=== PATIENT | male | born 1950 | race Caucasian/White ===

== ENCOUNTER → 2021-07-13 | Outpatient (CLI) | payer MEDICARE, OTHER ==
[~2021-07-13] MED LIST: ALBUTEROL1.25 MG/3 INH; ASPIR 8181 MG PO; ASPIRIN EC81 MG PO; AUGMENTIN 500-1 EACH PO; AUGMENTIN 875-1 EACH PO; BUMEX 1MG TABLET1 MG PO; CATAPRES 0.1MG0.1 MG PO; CEFDINIR300 MG PO; CEFUROXIME500 MG PO; CHRONULAC20 GM/30 M PO; CLARITIN10 MG PO; CLONIDINE1 EAC1 TD; CLOPIDOGREL75 MG PO; COQ-10100 MG PO; CORDARONE 200M200 MG PO; COZAAR 50MG TAB50 MG PO; COZAAR100 MG PO; DILTIAZEM 24HR240 M1 PO; DOXYCYCLINE HY100 MG PO; ELIQUIS 2.5 MG2.5 MG PO; FLONASE 0.05% N16 GM; HUMALOG 10100 UNITS/ SQ; HUMALOG100 UNIT/3 SC; HYDRALAZINE HC100 MG PO; ISOSORBIDE DINI30 MG PO; ISOSORBIDE MONO30 MG PO; KEFLEX CAP 250250 MG PO; KEFLEX250 MG PO; LANTUS100 UNIT/1 SQ; LISINOPRIL20 MG PO; LOPRESSOR 50 MG50 MG PO; LORATADINE10 MG PO; MONTELUKAST SOD10 MG PO; MUCINEX600 MG PO; NIFEDIPINE ER60 MG PO; NITROSTAT0.4 MG SL; OMNICEF 300 MG300 MG PO; PEPCID20 MG PO; PLAVIX 75 MG TA75 MG PO; PRADAXA150 MG PO; PRADAXA75 MG PO; PRAVACHOL20 MG PO; PRAVASTATIN SOD40 MG PO; PREDNISONE20 MG PO; PRESERVISION A1 EACH PO; PROCARDIA XL 3030 MG PO; PROTONIX40 MG PO; RANITIDINE HCL75 MG PO; RENVELA800 MG PO; SERTRALINE HCL25 MG PO; SYMBICORT 16010.2 GM INH; ULTRAM50 MG PO; VENTOLIN HFA 66.7 GM INH; VENTOLIN/PROVE0.5 ML INH; VITAMIN D325 MCG PO; ZOCOR10 MG PO; ZOLOFT25 MG PO
== END ==
LOC: EXRD 13:50
DX: I65.23 Occlusion and stenosis of bilateral carotid arteries (principal)
CPT/HCPCS: 93880

== ENCOUNTER 2021-07-31 07:10 | Observation (INO) | payer MEDICARE, OTHER ==
[~2021-07-31] VITALS: Ht 185.4 cm; Wt 128.5 kg
[~2021-07-31 07:10] MED LIST changes: -CLONIDINE1 EAC1 TD; -LORATADINE10 MG PO; -MONTELUKAST SOD10 MG PO; -NITROSTAT0.4 MG SL; -PRESERVISION A1 EACH PO; -VITAMIN D325 MCG PO
[2021-07-31 07:51] LABS: HEMOGLOBIN 11.4 gm/dl (14.0-17.5); RED BLOOD COUNT 3.82 M/UL (4.20-5.50); WHITE BLOOD COUNT 11.9 K/UL (4.5-11.0)
[2021-07-31] MEDS ORDERED: LANTUS100 UNIT/1 SQ (11:30)
[2021-07-31] MEDS ORDERED: LORATADINE10 MG PO (11:33)
[2021-07-31] MEDS ORDERED: MONTELUKAST SOD10 MG PO (11:35)
[2021-07-31] MEDS ORDERED: VITAMIN D325 MCG PO (11:36)
[2021-07-31] MEDS ORDERED: CLONIDINE1 EAC1 TD (11:39)
[2021-07-31] MEDS ORDERED: HYDRALAZINE HC100 MG PO (11:40)
[2021-07-31] MEDS ORDERED: NITROSTAT0.4 MG SL (12:33)
[2021-07-31] MEDS ORDERED: NIFEDIPINE ER60 MG PO (12:34)
[2021-07-31] MEDS ORDERED: PRAVASTATIN SOD40 MG PO (12:34)
[2021-07-31] MEDS ORDERED: PRESERVISION A1 EACH PO (12:59)
[2021-08-01 07:53] LABS: WHITE BLOOD COUNT 9.9 K/UL (4.5-11.0)
[2021-08-01 08:44] LABS: HEMOGLOBIN 9.4 gm/dl (14.0-17.5); RED BLOOD COUNT 3.14 M/UL (4.20-5.50)
== END 2021-08-01 14:19 | disposition home or self-care (01) ==
LOC: ER1 07:10 → CDU 10:23 → M/S 19:15
PROVIDERS: Emergency Medicine; Physician Assistant Medical; ADMIT Internal Medicine
DX: T82.868A Thrombosis due to vascular prosthetic devices, implants and grafts, initial encounter (principal); E78.5 Hyperlipidemia, unspecified; I12.0 Hypertensive chronic kidney disease with stage 5 chronic kidney disease or end stage renal disease; N18.6 End stage renal disease; E11.22 Type 2 diabetes mellitus with diabetic chronic kidney disease; Z99.2 Dependence on renal dialysis; I25.10 Atherosclerotic heart disease of native coronary artery without angina pectoris; Z95.1 Presence of aortocoronary bypass graft; D63.1 Anemia in chronic kidney disease; Z88.1 Allergy status to other antibiotic agents; Z88.2 Allergy status to sulfonamides; Z87.891 Personal history of nicotine dependence; E87.5 Hyperkalemia; I48.20 Chronic atrial fibrillation, unspecified; Z20.822 Contact with and (suspected) exposure to COVID-19; J98.11 Atelectasis; G47.33 Obstructive sleep apnea (adult) (pediatric)
CPT/HCPCS: 36415; 71045; 71250; 77001; 80048; 80053; 82550; 82553; 82962; 83735; 83874; 83880; 84484; 85025; 85027; 90935; 93005; 94664; 94760; C1750; C1752; C1769; G0378; J0690; J1642; J2001; J2405; J2704; J2765; J3010; J7040; J7120; U0002

== ENCOUNTER 2021-09-22 11:35 | Inpatient (IN) | payer MEDICARE, OTHER ==
[~2021-09-22] VITALS: Ht 185.4 cm; Wt 116.1 kg
[~2021-09-22 11:35] MED LIST changes: +CLONIDINE1 EAC1 TD; +HUMALOG100 UNIT/1 SQ; -HUMALOG100 UNIT/3 SC; +LORATADINE10 MG PO; +MONTELUKAST SOD10 MG PO; +NITROSTAT0.4 MG SL; +PRESERVISION A1 EACH PO; +VITAMIN D325 MCG PO
[2021-09-22 12:02] LABS: HEMOGLOBIN 11.4 gm/dl (14.0-17.5); RED BLOOD COUNT 3.74 M/UL (4.20-5.50); WHITE BLOOD COUNT 8.6 K/UL (4.5-11.0)
[2021-09-22] MEDS ORDERED: PANTOPRAZOLE SO20 MG PO (16:41)
[2021-09-22] MEDS ORDERED: CEPHALEXIN250 MG PO (16:44)
[2021-09-22] MEDS ORDERED: AUGMENTIN 875-1 EACH PO (16:45)
[2021-09-24 07:36] LABS: HEMOGLOBIN 10.5 gm/dl (14.0-17.5); RED BLOOD COUNT 3.52 M/UL (4.20-5.50); WHITE BLOOD COUNT 7.8 K/UL (4.5-11.0)
[2021-09-25 07:15] LABS: HEMOGLOBIN 10.6 gm/dl (14.0-17.5); RED BLOOD COUNT 3.58 M/UL (4.20-5.50); WHITE BLOOD COUNT 6.8 K/UL (4.5-11.0)
[2021-09-28 07:18] LABS: HEMOGLOBIN 10.6 gm/dl (14.0-17.5); RED BLOOD COUNT 3.62 M/UL (4.20-5.50); WHITE BLOOD COUNT 18.1 K/UL (4.5-11.0)
--- NOTE | 2021-09-29 10:25 | NUR ---
pt went to dialysis at 0900 via transport
[2021-09-30 08:41] LABS: HEMOGLOBIN 10.4 gm/dl (14.0-17.5); RED BLOOD COUNT 3.54 M/UL (4.20-5.50); WHITE BLOOD COUNT 14.6 K/UL (4.5-11.0)
[2021-10-01 06:51] LABS: HEMOGLOBIN 10.9 gm/dl (14.0-17.5); RED BLOOD COUNT 3.65 M/UL (4.20-5.50); WHITE BLOOD COUNT 13.4 K/UL (4.5-11.0)
[2021-10-02 08:44] LABS: RED BLOOD COUNT 3.36 M/UL (4.20-5.50); WHITE BLOOD COUNT 12.6 K/UL (4.5-11.0)
[2021-10-03 06:00] LABS: HEMOGLOBIN 9.9 gm/dl (14.0-17.5); RED BLOOD COUNT 3.28 M/UL (4.20-5.50)
[2021-10-04 09:27] LABS: HEMOGLOBIN 10.2 gm/dl (14.0-17.5); RED BLOOD COUNT 3.44 M/UL (4.20-5.50)
[2021-10-04 09:28] LABS: WHITE BLOOD COUNT 20.6 K/UL (4.5-11.0)
[2021-10-05 03:51] LABS: HEMOGLOBIN 9.8 gm/dl (14.0-17.5); RED BLOOD COUNT 3.38 M/UL (4.20-5.50); WHITE BLOOD COUNT 19.6 K/UL (4.5-11.0)
[2021-10-06 02:36] LABS: HEMOGLOBIN 10.1 gm/dl (14.0-17.5); RED BLOOD COUNT 3.41 M/UL (4.20-5.50); WHITE BLOOD COUNT 16.8 K/UL (4.5-11.0)
[2021-10-07 03:28] LABS: HEMOGLOBIN 9.4 gm/dl (14.0-17.5); RED BLOOD COUNT 3.21 M/UL (4.20-5.50); WHITE BLOOD COUNT 15.9 K/UL (4.5-11.0)
[2021-10-09 03:11] LABS: HEMOGLOBIN 9.5 gm/dl (14.0-17.5); RED BLOOD COUNT 3.24 M/UL (4.20-5.50); WHITE BLOOD COUNT 15.2 K/UL (4.5-11.0)
[2021-10-10 08:13] LABS: HBSAG SCREEN Negative (Negative); HEP A AB, IGM Negative (Negative); HEP B CORE AB, IGM Negative (Negative); HEP C VIRUS AB <0.1 (0.0-0.9)
--- NOTE | 2021-10-12 10:09 | NUR ---
PATIENT LEFT FLOOR AT 9AM THIS MORINING PER RESPIRATORY AND PER TRANSPORT TO DIALYSIS. PATIENT IS AWAKE AND ALERT WITH NO PRESENT COMPLAINTS OF PAIN OR DISCOMFORT
--- NOTE | 2021-10-12 14:10 | NUR ---
1200 TODAY CALLED TO DIALYSIS TO CHECK PATIENT SUGAR. HE STATED IT "FEELS" LOW. BLOOD SUGAR AT 123 PRESENTLY. NADN. WILL CONTINUE TO MONITOR
--- NOTE | 2021-10-12 14:50 | NUR ---
PATIENT RETURNS TO FLOOR FROM DIALYSIS. TOLERATED WELL. DIALYSIS NURSE CALLED REPORT 3.7 LITERS FLUID REMOVED
[2021-10-17 07:36] LABS: HEMOGLOBIN 8.3 gm/dl (14.0-17.5); RED BLOOD COUNT 2.89 M/UL (4.20-5.50); WHITE BLOOD COUNT 6.5 K/UL (4.5-11.0)
[2021-10-19 04:19] LABS: HEMOGLOBIN 8.4 gm/dl (14.0-17.5); RED BLOOD COUNT 2.96 M/UL (4.20-5.50); WHITE BLOOD COUNT 6.2 K/UL (4.5-11.0)
[2021-10-20 08:16] LABS: HEMOGLOBIN 8.4 gm/dl (14.0-17.5); RED BLOOD COUNT 3.04 M/UL (4.20-5.50); WHITE BLOOD COUNT 6.5 K/UL (4.5-11.0)
--- NOTE | 2021-10-22 20:11 | NUR ---
LATE ENTRY 1248- PT IN ROOM TO GET PATIENT UP, AND PATIENT HAD AN EPISODE WHERE HE WAS "WEAK AND LEANED OVER IN THE CHAIR, SAYING THAT HE DID NOT FEEL GOOD. ACCU CHECK WAS 195, HOWEVER B/P WAS 80'S/40'S CALLED DR. MORRIS MADE HER AWARE AND ORDERS FOR I.V. FLUIDS WAS REC. PATIENT WAS PLACED BACK IN BED PER P.T. 1320- PATIENT REPORTED HE STILL DIDNT NOT FEEL GOOD, B/P 90'S/50'S CONTINUE TO MONITOR
[2021-10-23 06:41] LABS: HEMOGLOBIN 8.3 gm/dl (14.0-17.5); RED BLOOD COUNT 2.92 M/UL (4.20-5.50); WHITE BLOOD COUNT 7.7 K/UL (4.5-11.0)
[2021-10-23] MEDS ORDERED: HUMALOG 10100 UNITS/ SC (10:16)
[2021-10-23] MEDS ORDERED: LOPRESSOR 25 MG25 MG PO (10:16)
[2021-10-23] MEDS ORDERED: IPRAT-ALBUT 0.5-3 ML NEB (10:42)
== END 2021-10-23 20:17 | DRG 871 ==
LOC: ER1 11:35 → PROG CARE 15:24 → CDU 15:24 → M/S 15:24 → PROG CARE 10-04 12:25 → MED SURG 4 10-21 14:41
PROVIDERS: Emergency Medicine; Internal Medicine; Internal Medicine Nephrology; Internal Medicine Pulmonary Disease; Physician Assistant Medical; ADMIT Internal Medicine
PROC: 3E0333Z Introduction of Anti-inflammatory into Peripheral Vein, Percutaneous Approach (ICD-10-PCS; 2021-09-22)
PROC: 3E0333Z Introduction of Anti-inflammatory into Peripheral Vein, Percutaneous Approach (ICD-10-PCS; 2021-09-22)
PROC: 5A1D70Z Performance of Urinary Filtration, Intermittent, Less than 6 Hours Per Day (ICD-10-PCS; principal; 2021-09-25)
PROC: 5A1D70Z Performance of Urinary Filtration, Intermittent, Less than 6 Hours Per Day (ICD-10-PCS; 2021-09-26)
PROC: 8E0ZXY6 Isolation (ICD-10-PCS; 2021-09-27)
PROC: 5A0955A Assistance with Respiratory Ventilation, Greater than 96 Consecutive Hours, High Flow/Velocity Cannula (ICD-10-PCS; 2021-09-28)
PROC: 5A1D70Z Performance of Urinary Filtration, Intermittent, Less than 6 Hours Per Day (ICD-10-PCS; 2021-09-29)
PROC: 5A1D70Z Performance of Urinary Filtration, Intermittent, Less than 6 Hours Per Day (ICD-10-PCS; 2021-09-30)
PROC: 5A1D70Z Performance of Urinary Filtration, Intermittent, Less than 6 Hours Per Day (ICD-10-PCS; 2021-10-01)
PROC: 0JH63XZ Insertion of Tunneled Vascular Access Device into Chest Subcutaneous Tissue and Fascia, Percutaneous Approach (ICD-10-PCS; 2021-10-01)
PROC: 02HV33Z Insertion of Infusion Device into Superior Vena Cava, Percutaneous Approach (ICD-10-PCS; 2021-10-01)
PROC: B548ZZA Ultrasonography of Superior Vena Cava, Guidance (ICD-10-PCS; 2021-10-01)
PROC: 5A1D70Z Performance of Urinary Filtration, Intermittent, Less than 6 Hours Per Day (ICD-10-PCS; 2021-10-02)
PROC: 5A1D70Z Performance of Urinary Filtration, Intermittent, Less than 6 Hours Per Day (ICD-10-PCS; 2021-10-03)
PROC: 5A1D70Z Performance of Urinary Filtration, Intermittent, Less than 6 Hours Per Day (ICD-10-PCS; 2021-10-05)
PROC: 5A1D70Z Performance of Urinary Filtration, Intermittent, Less than 6 Hours Per Day (ICD-10-PCS; 2021-10-07)
PROC: 5A1D70Z Performance of Urinary Filtration, Intermittent, Less than 6 Hours Per Day (ICD-10-PCS; 2021-10-10)
PROC: 5A1D70Z Performance of Urinary Filtration, Intermittent, Less than 6 Hours Per Day (ICD-10-PCS; 2021-10-12)
PROC: 5A1D70Z Performance of Urinary Filtration, Intermittent, Less than 6 Hours Per Day (ICD-10-PCS; 2021-10-14)
PROC: 5A1D70Z Performance of Urinary Filtration, Intermittent, Less than 6 Hours Per Day (ICD-10-PCS; 2021-10-15)
PROC: 5A1D70Z Performance of Urinary Filtration, Intermittent, Less than 6 Hours Per Day (ICD-10-PCS; 2021-10-16)
PROC: 5A1D70Z Performance of Urinary Filtration, Intermittent, Less than 6 Hours Per Day (ICD-10-PCS; 2021-10-19)
PROC: 5A1D70Z Performance of Urinary Filtration, Intermittent, Less than 6 Hours Per Day (ICD-10-PCS; 2021-10-20)
PROC: 5A1D70Z Performance of Urinary Filtration, Intermittent, Less than 6 Hours Per Day (ICD-10-PCS; 2021-10-21)
DX: A41.89 Other specified sepsis (principal); J12.82 Pneumonia due to coronavirus disease 2019; U07.1 COVID-19; N18.6 End stage renal disease; J15.9 Unspecified bacterial pneumonia; J80 Acute respiratory distress syndrome; N17.0 Acute kidney failure with tubular necrosis; I12.0 Hypertensive chronic kidney disease with stage 5 chronic kidney disease or end stage renal disease; D61.818 Other pancytopenia; E87.1 Hypo-osmolality and hyponatremia; B37.0 Candidal stomatitis; T82.868A Thrombosis due to vascular prosthetic devices, implants and grafts, initial encounter; R65.20 Severe sepsis without septic shock; I25.10 Atherosclerotic heart disease of native coronary artery without angina pectoris; F17.210 Nicotine dependence, cigarettes, uncomplicated; D69.6 Thrombocytopenia, unspecified; E88.09 Other disorders of plasma-protein metabolism, not elsewhere classified; E78.5 Hyperlipidemia, unspecified; I48.91 Unspecified atrial fibrillation; I44.7 Left bundle-branch block, unspecified; E66.01 Morbid (severe) obesity due to excess calories; G89.4 Chronic pain syndrome; E11.22 Type 2 diabetes mellitus with diabetic chronic kidney disease; D63.1 Anemia in chronic kidney disease; F41.9 Anxiety disorder, unspecified; Y84.1 Kidney dialysis as the cause of abnormal reaction of the patient, or of later complication, without mention of misadventure at the time of the procedure; R31.9 Hematuria, unspecified; E87.5 Hyperkalemia; E11.65 Type 2 diabetes mellitus with hyperglycemia; K59.00 Constipation, unspecified; R53.81 Other malaise; Z99.2 Dependence on renal dialysis; Z79.01 Long term (current) use of anticoagulants; Z95.1 Presence of aortocoronary bypass graft; Z88.1 Allergy status to other antibiotic agents; Z91.013 Allergy to seafood; Z82.49 Family history of ischemic heart disease and other diseases of the circulatory system; Z95.5 Presence of coronary angioplasty implant and graft; Z68.36 Body mass index [BMI] 36.0-36.9, adult; Z87.01 Personal history of pneumonia (recurrent); I95.9 Hypotension, unspecified; Z79.4 Long term (current) use of insulin
CPT/HCPCS: 36415; 36600; 71045; 71250; 77001; 80048; 80053; 80069; 80074; 81001; 82728; 82803; 82962; 83036; 83540; 83550; 83605; 83615; 83735; 83880; 84100; 84132; 85025; 85027; 85379; 85384; 86140; 87040; 90935; 90937; 93005; 94640; 94660; 94664; 94760; 94762; 97110; 97116; 97161; 97166; 97530; 97530-GP-CQ; 97535; 99284; C1750; C1752; C1769; J0456; J1100; J1644; J2020; J2185; J2270; J2405; J2997; J7030; J7040; J7050; J7120; P9047; Q5106; U0002

== ENCOUNTER → 2022-03-30 | Outpatient (CLI) | payer MEDICARE, OTHER ==
[~2022-03-30] MED LIST changes: +CEPHALEXIN250 MG PO; +HUMALOG 10100 UNITS/ SC; +IPRAT-ALBUT 0.5-3 ML NEB; +LOPRESSOR 25 MG25 MG PO; +PANTOPRAZOLE SO20 MG PO
== END ==
LOC: HEART 5 13:28
DX: R06.02 Shortness of breath (principal); Z79.899 Other long term (current) drug therapy
CPT/HCPCS: 94060; 94729

== ENCOUNTER 2022-07-09 14:20 | Emergency (ER) | payer MEDICARE, OTHER ==
[2022-07-09 15:29] LABS: HEMOGLOBIN 12.3 gm/dl (14.0-17.5); RED BLOOD COUNT 3.99 M/UL (4.20-5.50); WHITE BLOOD COUNT 16.2 K/UL (4.5-11.0)
== END 2022-07-09 17:20 | disposition home or self-care (01) ==
LOC: ER1 14:20
PROVIDERS: Nurse Practitioner
DX: U07.1 COVID-19 (principal); Z23 Encounter for immunization; E11.9 Type 2 diabetes mellitus without complications; I48.91 Unspecified atrial fibrillation; J44.9 Chronic obstructive pulmonary disease, unspecified; Z79.02 Long term (current) use of antithrombotics/antiplatelets; Z79.4 Long term (current) use of insulin; Z88.2 Allergy status to sulfonamides; Z88.8 Allergy status to other drugs, medicaments and biological substances
CPT/HCPCS: 71045; 80053; 85025; 94664; 99284; M0222